=== PATIENT | male | born 1995 | race Two or more races ===

== ENCOUNTER 2025-03-03 18:04 | Emergency (ER) | payer MEDICAID, OTHER ==
[~2025-03-03] VITALS: Ht 177.8 cm; Wt 81.8 kg
[2025-03-03 18:58] VITALS: BP 113/84; PULSE 90; RESP 18; TEMP 98.1; O2SAT 97
--- NOTE | 2025-03-03 19:19 | DVH ---
CLINICAL INDICATION: knee pain/injury TECHNIQUE: 3 radiographic views of the right knee were obtained. Comparison: None FINDINGS/IMPRESSION: There is no evidence of acute fracture or dislocation. The visualized joint space is well maintained. The alignment is anatomical. There is no radiopaque foreign body. Small to moderate suprapatellar effusion
--- NOTE | 2025-03-03 19:19 | DVH ---
CLINICAL INDICATION: knee pain/injury TECHNIQUE: XY L KNEE 3V XRAY, XY R KNEE 3V XRAY Comparison: None FINDINGS/IMPRESSION: : There is no evidence of acute fracture or dislocation. Small bilateral knee joint effusion, [id number].
--- NOTE | 2025-03-03 19:21 | ED.PDOC ---
Back pain HPI HPI Comments Pt C/O bilateral knee pain x 2 weeks. Denies any injury or known source of pain, states "I might have twisted my knees getting out of the car." Reports pain 05/26 at this time. Chief Complaint: Lower Extremity Time Seen by MD: 18:06 Reviewed Notes: Nurses Notes, Medications, Allergies Allergies: Coded Allergies: NO KNOWN ALLERGIES (Unverified , 03/03/25) Home Meds Active Scripts Methylprednisolone (Medrol Dosepak) 4 Mg Mina, 4 MG PO UD for 6 Days, #21 TAB UAD Prov:OCTAVIO CROOK [employer]CH[employer] 03/03/25 Information Source: Patient Mode of Arrival: Wheelchair Past Medical History PAST MEDICAL HISTORY: Denies Surgical History: Denies all surgeries Family History Family History: Unknown Social History Smoker: Non-Smoker Alcohol: Denies ETOH Use Drugs: Denies Drug Use Constitutional: denies: chills, diaphoresis, fatigue, fever, malaise, sweats, weakness, others EENTM: denies: blurred vision, double vision, ear bleeding, ear discharge, ear drainage, ear pain, ear ringing, eye pain, eye redness, hearing loss, mouth pain, mouth swelling, nasal discharge, nose bleeding, nose congestion, nose pain, photophobia, tearing, throat pain, throat swelling, voice changes, others Respiratory: denies: cough, hemoptysis, orthopnea, SOB at rest, shortness of breath, SOB with excertion, stridor, wheezing, others Cardiovascular: denies: chest pain, dizzy spells, diaphoresis, Dyspnea on exertion, edema, irregular heart beat, left arm pain, lightheadedness, palpi tations, PND, syncope, others Gastrointestinal: denies: abdomen distended, abdominal pain, blood streaked bowels, constipated, diarrhea, dysphagia, difficulty swallowing, hematemesis, melena, nausea, poor appetite, poor fluid intake, rectal bleeding, rectal pain, vomiting, others Genitourinary: denies: burning, dysuria, flank pain, frequency, hematuria, incontinence, penile discharge, penile sore, pain, testicle pain, testicle swelling, urgency, others Neurological: denies: dizziness, fainting, headache, left sided numbness, left sided weakness, numbness, paresthesia, pre-existing deficit, right sided numbness, right sided weakness, seizure, speech problems, tingling, tremors, weakness, others Musculoskeletal: reports: others (bilateral knee pain ); denies: back pain, gout, joint pain, joint swelling, muscle pain, muscle stiffness, neck pain Integumetry: denies: bruises, change in color, change in hair/nails, dryness, laceration, lesions, lumps, rash, wounds, others Allergic/Immunocompromised: denies: Difficulty Healing, Frequent Infections, Hives, Itching, others Hematologic/Lymphatic: denies: anemia, blood clots, easy bleeding, easy bruising, swollen glands, others Endocrine: denies: excessive hunger, excessive sweating, excessive thirst, excessive urination, flushing, intolerance to cold, intolerance to heat, unexp lained weight gain, unexplained weight loss, others Psychiatric: denies: anxiety, bipolar disorder, depression, hopeless, panic disorder, schizophrenia, sleepless, suicidal, others Physical Exam General Appearance: No Apparent Distress, Normal HEENT: Pharynx Normal Neck: Full Range of Motion, Non-Tender, Normal, Normal Inspection Respiratory: Chest Non-Tender, Lungs Clear, No Accessory Muscle Use, No Respiratory Distress, Normal Breath Sounds Cardiovascular: No JVD, No Murmur, Normal Peripheral Pulses, Regular Rate/Rhythm Breast Exam: Deferred Gastrointestinal: Non Tender, Soft Genitalia: Deferred Pelvic: Deferred Rectal: Deferred Extremities: No calf tenderness, Normal capillary refill, Normal inspection, Normal range of motion, Non-tender, No pedal edema Musculoskeletal : Location: Bilateral (Bilateral knees no noted visible external trauma. No noted edema. Negative Shan's negative drawer negative ballottement test. Sensory and motion intact both extremities positive pedal pulses) Apperance: Normal Neurologic: Alert, route clerk II-XII nml as Tested, No Motor Deficits, Normal Affect, Normal Mood, No Sensory Deficits Cerebellar Function: Normal Reflexes: Normal Skin: Dry, Normal Color, Warm Lymphatic: No Adenopathy Was a procedure done? Was a procedure done?: No Back Pain Differential Dx Differential Diagnosis: Fracture, Musculoskeletal Pain X-Ray, Labs, Meds, VS Vital Signs Date Time Temp Pulse Resp B/P (MAP) Pulse Ox O2 Delivery O2 Flow Rate FiO2 03/03/25 18:58 98.1 90 18 113/84 (94) 97 98.1 03/03/25 18:58 90 18 97 Room Air 03/03/25 18:35 98.1 90 18 113/84 (94) 97 98.1 Current Medications Medications (Trade) Dose Ordered Sig/Reinaldo Route Start Time Stop Time Status Last Admin Ketorolac Tromethamine (Toradol Injection) 60 mg ONCE ONCE IM 03/03/25 19:30 03/03/25 19:31 DC 03/03/25 19:25 X-Ray, Labs, Meds, VS Comment BILATERAL KNEE X-RAY SHOWS JOINT EFFUSION LEFT GREATER THAN RIGHT. STATES PAIN IS GREATER IN THE LEFT SIDE HAS BEEN FOR THE PAST 2 WEEKS PATIENT PLACED IN KNEE BRACE AND CRUTCHES GIVEN. SCRIPT MEDROL DOSEPAK SIDE EFFECTS DISCUSSED TAKE MEDICATION PRESCRIBED. FOLLOW UP WITH YOUR PCP IN 2-3 DAYS CONSIDER FURTHER IMAGING SUCH MRI IF SYMPTOMS PERSIST. PATIENT INDICATES UNDERSTANDING AGREES WITH DISCHARGE PLAN OF CARE Time of 1ST Reevaluation: 19:20 Reevaluation 1ST: Unchanged Time of 2ND Reevaluation: 19:40 Reevaluation 2ND: Improved Patient Education/Counseling: Diagnosis, Treatment, Prognosis, Need For Follow Up Family Education/Counseling: Diagnosis, Treatment, Prognosis, Need For Follow Up Departure 1 Departure Time of Disposition: 19:40 Impression: Primary Impression: Effusion of both knee joints Disposition: 01 HOME / SELF CARE / HOMELESS Condition: Stable e-Prescriptions Methylprednisolone (Medrol Dosepak) 4 Mg Mina 4 MG PO UD for 6 Days, #21 TAB UAD Prov: OCTAVIO CROOK 03/03/25 Discharged With: Relative, Spouse Critical Care Note Critical Care Time?: No Stability Stability form required: No OCTAVIO CROOK Mar 03, 2025 19:21
[2025-03-03] MEDS: KETOROLAC TROMETH 60MG/2ML VIAL IM ONE (19:25)
[2025-03-03] MEDS ORDERED: METH4PAK PO (19:31)
== END 2025-03-03 20:26 | disposition home or self-care (01) ==
LOC: ER 18:04
DX: M25.461 Effusion, right knee (principal); M25.462 Effusion, left knee; Z79.899 Other long term (current) drug therapy
CPT/HCPCS: 29505; 73562; 96372; 99283; J1885